=== PATIENT | female | born 1990 | race Caucasian/White ===

== ENCOUNTER 2019-01-14 19:19 | Inpatient (IN) ==
[2019-01-14] MEDS ORDERED: PANTOPRAZOLE 40 MG VIAL IV STA (19:58)
[2019-01-14] MEDS ORDERED: SODIUM CHLORIDE 0.9% 500 ML IV STA (19:58)
[2019-01-14] MEDS ORDERED: KETOROLAC 30 MG/1 ML VIAL IV STA (19:58)
[2019-01-14] MEDS ORDERED: ONDANSETRON 4 MG/2 ML VIAL IV STA (19:58)
[2019-01-14] MEDS ORDERED: HYDROmorphone 2 MG/1 ML VIAL IV STA (19:58)
[2019-01-14] MEDS ORDERED: KETOROLAC 60 MG/2 ML VIAL IM ONE (20:57)
[2019-01-14 21:03] LABS: Basophils % 0.5 % (0.0-0.8); Eosinophils # 0.1 10*3/uL (0.0-0.87); Eosinophils % 2.4 % (0.00-10.9); Hematocrit 36.4 VOL% (35.7-47.0); Hemoglobin 11.8 GM/DL (12.0-16.0); Immature Granulocytes % 0.2 %; Immature Granulocytes Absolute 0.01 #; Lymphocytes # 2.7 10*3/uL (1.4-4.0); Lymphocytes % 45.6 % (21.3-54.2); Mean Corpuscular HGB Conc 32.4 GM/DL (32-36); Mean Corpuscular Volume 87.7 FL (87-102); Mean Platelet Volume 9.6 FL (9.6-12.0); Monocytes % 8.6 % (1.7-12.7); Neutrophils % 42.7 % (38.7-73.9); Platelet Count 248 T/CUMM (130-400); Red Blood Count 4.15 MC/CUMM (3.8-5.5); Red Cell Distribution Width 13.1 % (9.3-17.3); White Blood Count 5.9 T/CUMM (4-12)
[2019-01-14 21:08] LABS: Apearance,Urine CLOUDY (Clear); Bilirubin,Urine Negative (Negative); Blood, Urine Negative (Negative); Glucose,Urine (UA) Negative (Negative); Ketones,Urine Negative (Negative); Mucus,Urine Occasional /LPF (Occasional); Nitrite,Urine Negative (Negative); Protein,Urine Negative; RBC,Urine 20 /HPF (0-4); Squamous Epithelial Cell,Urine Occasional /HPF (0-10); Urine Color Straw (Yellow); Urine Specific Gravity 1.012 (1.001-1.035); Urine Urobilinogen < 2.0 EU/DL (0.2-1.0)
[2019-01-14 21:22] LABS: Albumin 3.9 G/DL (3.4-5.0); Bilirubin,Total 0.4 MG/DL (0.2-1.0); Calcium 8.6 MG/DL (8.5-10.1); Total Protein 7.3 G/DL (6.4-8.3)
[2019-01-14] MEDS ORDERED: hydrALAZINE 20 MG/1 ML VIAL IV STA (22:10)
[2019-01-14] MEDS ORDERED: hydrALAZINE 20 MG/1 ML VIAL IV PRN (23:50)
[2019-01-14] MEDS ORDERED: DEXTROSE 50% 25 GM/50 ML VIAL IV PRN (23:50)
[2019-01-14] MEDS ORDERED: HYDROmorphone 2 MG/1 ML VIAL IV PRN (23:50)
[2019-01-14] MEDS ORDERED: GLUCAGON 1 MG VIAL IM PRN (23:50)
[2019-01-14] MEDS ORDERED: ACETAMINOPHEN 325 MG TABLET PO PRN (23:50)
[2019-01-14] MEDS ORDERED: ONDANSETRON 4 MG/2 ML VIAL IV PRN (23:50)
[2019-01-15] MEDS: SODIUM CHLORIDE 0.9% 1,000 ML IV SCH ×2 (02:19→11:55)
[2019-01-15] MEDS: PIPERACILLIN/TAZOBACTAM 3,375 MG in SODIUM CHLORIDE 0.9% 100 ML IV SCH ×2 (02:20→11:28)
[2019-01-15 04:57] LABS: Basophils % 0.6 % (0.0-0.8); Eosinophils # 0.2 10*3/uL (0.0-0.87); Eosinophils % 3.2 % (0.00-10.9); Hematocrit 35.9 VOL% (35.7-47.0); Hemoglobin 11.3 GM/DL (12.0-16.0); Immature Granulocytes % 0.3 %; Immature Granulocytes Absolute 0.02 #; Lymphocytes # 3.2 10*3/uL (1.4-4.0); Lymphocytes % 43.8 % (21.3-54.2); Mean Corpuscular HGB Conc 31.5 GM/DL (32-36); Mean Corpuscular Volume 88.4 FL (87-102); Monocytes % 11.1 % (1.7-12.7); Platelet Count 224 T/CUMM (130-400); Red Blood Count 4.06 MC/CUMM (3.8-5.5); Red Cell Distribution Width 12.8 % (9.3-17.3); White Blood Count 7.2 T/CUMM (4-12)
[2019-01-15 05:36] LABS: Albumin 3.6 G/DL (3.4-5.0); Bilirubin,Total 1.3 MG/DL (0.2-1.0); Calcium 8.7 MG/DL (8.5-10.1)
[2019-01-15] MEDS ORDERED: cefOXitin 2,000 MG in SYRINGE 1 EACH IV ONE (06:56)
[2019-01-15] MEDS ORDERED: LIDOCAINE 1%/EPI INJ 20 ML VIAL ONE (07:58)
[2019-01-15] MEDS ORDERED: BUPIVACAINE 0.25% /EPI 10 ML VIAL ONE (07:58)
[2019-01-15] MEDS ORDERED: TISSUE ADHESIVE 1 EACH APPLICATOR TOP ONE (07:58)
[2019-01-15] MEDS: INSULIN REGULAR 100 UNIT/ML SUBCUT SCH ×3 (08:19→16:37)
[2019-01-15] MEDS ORDERED: DEXTROSE 50% 25 GM/50 ML VIAL IV ONE (08:42)
[2019-01-15] MEDS ORDERED: PANTOPRAZOLE 40 MG VIAL IV SCH (09:00)
[2019-01-15] MEDS ORDERED: FAMOTIDINE 20 MG/2 ML VIAL IV SCH (09:00)
[2019-01-15] MEDS ORDERED: fentaNYL 100 MCG/2 ML VIAL ONE (09:56)
[2019-01-15] MEDS ORDERED: MIDAZOLAM 2 MG/2 ML VIAL ONE (09:56)
[2019-01-15] MEDS ORDERED: PROPOFOL 200 MG/20 ML VIAL IV ONE (09:56)
[2019-01-15] MEDS ORDERED: SEVOFLURANE 1 UNIT/15 MINUTE INH ONE (09:56)
[2019-01-15] MEDS ORDERED: ROCURONIUM 100 MG/10 ML VIAL IV ONE (09:57)
[2019-01-15] MEDS ORDERED: KETOROLAC 60 MG/2 ML VIAL IM ONE (09:57)
[2019-01-15] MEDS ORDERED: ONDANSETRON 4 MG/2 ML VIAL ONE (09:57)
[2019-01-15] MEDS ORDERED: NEOSTIGMINE 10 MG/10 ML VIAL ONE (09:57)
[2019-01-15] MEDS ORDERED: DEXAMETHASONE 4 MG/1 ML VIAL ONE (09:57)
[2019-01-15] MEDS ORDERED: GLYCOPYRROLATE 0.4 MG/2 ML VIAL ONE (09:57)
[2019-01-15] MEDS ORDERED: hydrALAZINE 20 MG/1 ML VIAL IV ONE (10:09)
[2019-01-15 16:02] VITALS: BP 141/94
== END 2019-01-15 18:42 | disposition home or self-care (01) | DRG 419 ==
LOC: N.ED 19:19 → N.3E 22:15
PROVIDERS: ADMIT Surgery; ATTEND Surgery
PROC: LAPCHOL (2019-01-15 08:44)

== ENCOUNTER 2022-03-05 05:37 | Inpatient (IN) ==
[2022-03-05] MEDS ORDERED: miSOPROStoL 200 MCG TABLET RECTAL PRN (05:51)
[2022-03-05] MEDS ORDERED: METHYLERGONOVINE 0.2 MG/1 ML AMP IM PRN (05:51)
[2022-03-05] MEDS ORDERED: CITRIC ACID/SODIUM CITRATE 30 ML UDCUP PO ONE (05:51)
[2022-03-05] MEDS ORDERED: CARBOPROST TROMETHAMINE 250 MCG/ML AMP IM PRN (05:51)
[2022-03-05] MEDS ORDERED: FAMOTIDINE 20 MG/2 ML VIAL IV ONE (05:51)
[2022-03-05] MEDS ORDERED: TRANEXAMIC ACID 1,000 MG in SODIUM CHLORIDE 0.9% 100 ML IV PRN (05:51)
[2022-03-05] MEDS ORDERED: OXYTOCIN/LR 20 UNIT/1,000 ML BAG IV ONE ×2 (05:51→14:21)
[2022-03-05 06:05] LABS: Basophils % 0.4 % (0.0-0.8); Eosinophils # 0.1 10*3/uL (0.0-0.87); Eosinophils % 0.9 % (0.00-10.9); Hematocrit 37.6 VOL% (35.7-47.0); Hemoglobin 12.5 GM/DL (12.0-16.0); Immature Granulocytes % 1.4 %; Immature Granulocytes Absolute 0.13 #; Lymphocytes # 2.3 10*3/uL (1.4-4.0); Lymphocytes % 23.5 % (21.3-54.2); Mean Corpuscular HGB Conc 33.2 GM/DL (32-36); Mean Corpuscular Volume 93.5 FL (87-102); Mean Platelet Volume 9.9 FL (9.6-12.0); Monocytes # 0.9 10*3/uL (0.11-0.8); Monocytes % 9.7 % (1.7-12.7); Neutrophils % 64.1 % (38.7-73.9); Platelet Count 198 T/CUMM (130-400); Red Blood Count 4.02 MC/CUMM (3.8-5.5); Red Cell Distribution Width 12.9 % (9.3-17.3); White Blood Count 9.6 T/CUMM (4-12)
[2022-03-05] MEDS: LACTATED RINGERS 1,000 ML IV SCH ×3 (06:11→18:43)
[2022-03-05] MEDS ORDERED: ceFAZolin 2,000 MG/50 ML DUPLEX IV ONE (07:29)
[2022-03-05] MEDS ORDERED: SODIUM CHLORIDE 0.9% 0 ML IV ONE (08:16)
[2022-03-05] MEDS ORDERED: buprenorphine HCL 0.3 MG/ML VIAL ONE (10:21)
[2022-03-05] MEDS ORDERED: LIDOCAINE 2% 5 ML VIAL ONE (10:38)
[2022-03-05] MEDS ORDERED: ePHEDrine 50 MG/ML VIAL ONE (10:56)
[2022-03-05] MEDS ORDERED: PHENYLEPHRINE 1 MG/10 ML SYRINGE IV ONE (10:56)
[2022-03-05] MEDS ORDERED: DEXAMETHASONE 4 MG/1 ML VIAL ONE (11:21)
[2022-03-05] MEDS ORDERED: ONDANSETRON 4 MG/2 ML VIAL ONE (11:21)
[2022-03-05] MEDS ORDERED: ACETAMINOPHEN INJ 1,000 MG/100 ML VIAL IV ONE (11:21)
[2022-03-05] MEDS ORDERED: KETOROLAC 30 MG/1 ML VIAL ONE (11:21)
[2022-03-05 11:41] LABS: Cord Arterial Blood HCO3 21.9 MMOL/L
[2022-03-05 11:44] LABS: Cord Venous Blood HCO3 23.5 MMOL/L; Cord Venous Blood PCO2 45.5 MMHG; Cord Venous Blood PO2 26.2
[2022-03-05 12:00] LABS: Amorphous Crystals,Urine Occasional /HPF (Few); Glucose,Urine (UA) Negative (Negative); Ketones,Urine 40 mg/dL (Negative); Mucus,Urine Occasional /LPF (Occasional); Nitrite,Urine Negative (Negative); Protein,Urine Negative (Negative); RBC,Urine 1 /HPF (0-4); Squamous Epithelial Cell,Urine Occasional /HPF (0-10); Urine Appearance Clear (Clear); Urine Color Light Yellow (Yellow); Urine Specific Gravity 1.015 (1.001-1.035); Urine pH 8.5 (4.5-8.0)
[2022-03-05 12:01] LABS: Bilirubin,Urine Negative (Negative); Blood, Urine Negative (Negative); Urine Urobilinogen 0.2 eU/dL (<2.0)
[2022-03-05] MEDS ORDERED: KETOROLAC 30 MG/1 ML VIAL IV SCH (13:00)
[2022-03-05] MEDS ORDERED: ACETAMINOPHEN 500 MG TABLET PO SCH (13:00)
[2022-03-05] MEDS: ACETAMINOPHEN 500 MG TABLET PO SCH ×2 (17:09→23:18)
[2022-03-05] MEDS: KETOROLAC 30 MG/1 ML VIAL IV SCH ×2 (17:10→23:19)
[2022-03-05] MEDS ORDERED: HYDROmorphone 1 MG/1 ML SYRINGE IV PRN (18:21)
[2022-03-06 04:54] LABS: Basophils % 0.2 % (0.0-0.8); Eosinophils % 0.1 % (0.00-10.9); Hemoglobin 9.6 GM/DL (12.0-16.0); Immature Granulocytes % 0.8 %; Immature Granulocytes Absolute 0.14 #; Lymphocytes # 2.6 10*3/uL (1.4-4.0); Lymphocytes % 14.6 % (21.3-54.2); Mean Corpuscular HGB Conc 33.1 GM/DL (32-36); Mean Corpuscular Volume 94.8 FL (87-102); Mean Platelet Volume 10.8 FL (9.6-12.0); Monocytes # 1.8 10*3/uL (0.11-0.8); Monocytes % 9.9 % (1.7-12.7); Neutrophils % 74.4 % (38.7-73.9); Platelet Count 173 T/CUMM (130-400); Red Blood Count 3.06 MC/CUMM (3.8-5.5); Red Cell Distribution Width 12.9 % (9.3-17.3); White Blood Count 17.8 T/CUMM (4-12)
[2022-03-06] MEDS: ACETAMINOPHEN 500 MG TABLET PO SCH (05:51)
[2022-03-06] MEDS: KETOROLAC 30 MG/1 ML VIAL IV SCH (05:52)
[2022-03-06] MEDS ORDERED: MEPERIDINE 50 MG/1 ML VIAL IV PRN (09:15)
[2022-03-06] MEDS ORDERED: ONDANSETRON 4 MG/2 ML VIAL IV PRN (09:16)
[2022-03-06] MEDS ORDERED: BENZOCAINE 20%/MENTHOL 0.5% SPRAY 56 GM CAN TOP PRN (14:03)
[2022-03-06] MEDS ORDERED: LANOLIN 50% CREAM 0.3 OZ TUBE TOP PRN (14:03)
[2022-03-06] MEDS ORDERED: BISACODYL 10 MG SUPP RECTAL PRN (14:03)
[2022-03-06] MEDS ORDERED: HYDROCORTISONE 2.5% RECTAL CREAM 30 GM TUBE TOP PRN (14:03)
[2022-03-06] MEDS ORDERED: WITCH HAZEL PADS 100/JAR TOP PRN (14:03)
[2022-03-06] MEDS ORDERED: ACETAMINOPHEN 325 MG TABLET PO PRN (14:03)
[2022-03-06] MEDS ORDERED: MEASLES/MUMPS/RUBELLA VACCINE 0.5 ML VIAL SUBCUT ONE (14:03)
[2022-03-06] MEDS ORDERED: IBUPROFEN 800 MG TABLET PO PRN (14:03)
[2022-03-06] MEDS ORDERED: oxyCODONE/ACETAMINOPHEN 5-325 MG TABLET PO PRN (14:03)
[2022-03-06] MEDS ORDERED: DIPH/TET/ACEL PERT BOOSTER VACCINE 0.5 ML VIAL IM ONE (14:03)
[2022-03-06] MEDS: oxyCODONE/ACETAMINOPHEN 5-325 MG TABLET PO PRN ×2 (15:51→21:30)
[2022-03-06] MEDS: DOCUSATE SODIUM 100 MG CAPSULE PO SCH (21:30)
[2022-03-07] MEDS: DOCUSATE SODIUM 100 MG CAPSULE PO SCH (08:07)
[2022-03-07] MEDS: oxyCODONE/ACETAMINOPHEN 5-325 MG TABLET PO PRN ×2 (08:08→15:09)
[2022-03-07 11:29] VITALS: BP 106/64
[2022-03-07] MEDS ORDERED: CYCLOBENZAPRINE 10 MG TABLET PO SCH (16:30)
== END 2022-03-07 15:45 | disposition home or self-care (01) | DRG 788 ==
LOC: N.LDOUT 05:37 → N.LD 05:39 → N.OB 15:12
PROVIDERS: ADMIT Specialist; ATTEND Specialist
PROC: LDCSECT (ICD-10-PCS; 2022-03-05 08:00)

== ENCOUNTER 2022-03-14 01:01 | Observation (INO) ==
[2022-03-14] MEDS ORDERED: SODIUM CHLORIDE 0.9% 500 ML IV STA (01:40)
[2022-03-14] MEDS ORDERED: ONDANSETRON 4 MG/2 ML VIAL IV STA (01:40)
[2022-03-14 02:30] LABS: Basophils # 0.1 10*3/uL (0.0-0.2); Basophils % 0.5 % (0.0-0.8); Eosinophils # 0.3 10*3/uL (0.0-0.87); Eosinophils % 3.7 % (0.00-10.9); Hematocrit 33.2 VOL% (35.7-47.0); Hemoglobin 10.9 GM/DL (12.0-16.0); Immature Granulocytes % 0.5 %; Immature Granulocytes Absolute 0.05 #; Lymphocytes # 2.2 10*3/uL (1.4-4.0); Lymphocytes % 23.3 % (21.3-54.2); Mean Corpuscular HGB Conc 32.8 GM/DL (32-36); Mean Corpuscular Volume 94.3 FL (87-102); Mean Platelet Volume 9.3 FL (9.6-12.0); Monocytes # 0.9 10*3/uL (0.11-0.8); Monocytes % 9.7 % (1.7-12.7); Neutrophils % 62.3 % (38.7-73.9); Platelet Count 280 T/CUMM (130-400); Red Blood Count 3.52 MC/CUMM (3.8-5.5); Red Cell Distribution Width 12.5 % (9.3-17.3); White Blood Count 9.2 T/CUMM (4-12)
[2022-03-14 02:44] LABS: PT Patient Result 21.5 SECS (10.1-12.1)
[2022-03-14 02:47] LABS: Albumin 2.8 G/DL (3.4-5.0); Bilirubin,Total 0.4 MG/DL (0.20-1.00); Calcium 8.4 MG/DL (8.5-10.1); Osmolality,Calculated 279.1 MOS/KG (273-304); Total Protein 6.5 G/DL (6.4-8.2)
[2022-03-14] MEDS ORDERED: CARBOPROST TROMETHAMINE 250 MCG/ML AMP IM ONE ×2 (02:52→03:00)
[2022-03-14] MEDS ORDERED: HYDROmorphone 1 MG/1 ML SYRINGE IV STA (03:33)
[2022-03-14 03:45] LABS: Bilirubin,Urine Negative (Negative); Blood, Urine Trace mg/dL (Negative); Glucose,Urine (UA) Negative (Negative); Ketones,Urine Negative (Negative); Nitrite,Urine Negative (Negative); Protein,Urine Negative (Negative); Urine Appearance Clear (Clear); Urine Color Yellow (Yellow); Urine Specific Gravity 1.015 (1.001-1.035); Urine Urobilinogen 0.2 eU/dL (<2.0); Urine pH 5.5 (4.5-8.0)
[2022-03-14 03:46] LABS: Mucus,Urine Trace /LPF (Occasional); RBC,Urine 0-3 /HPF (0-4); Squamous Epithelial Cell,Urine Few /HPF (0-10)
[2022-03-14] MEDS ORDERED: LACTATED RINGERS 1,000 ML IV SCH (04:04)
[2022-03-14] MEDS ORDERED: OXYTOCIN/LR 20 UNIT/1,000 ML BAG IV ONE ×2 (04:04→12:28)
[2022-03-14] MEDS ORDERED: SODIUM CHLORIDE 0.9% 1,000 ML IV SCH (04:04)
[2022-03-14] MEDS ORDERED: BISACODYL 10 MG SUPP RECTAL PRN (04:04)
[2022-03-14] MEDS ORDERED: ONDANSETRON 4 MG/2 ML VIAL IV PRN (04:04)
[2022-03-14] MEDS ORDERED: oxyCODONE/ACETAMINOPHEN 5-325 MG TABLET PO PRN (04:04)
[2022-03-14] MEDS ORDERED: HYDROmorphone 1 MG/1 ML SYRINGE IV PRN (04:04)
[2022-03-14] MEDS ORDERED: MAGNESIUM HYDROXIDE SUSP 30 ML UDCUP PO PRN (04:04)
[2022-03-14] MEDS ORDERED: ACETAMINOPHEN 325 MG TABLET PO PRN (04:04)
[2022-03-14] MEDS ORDERED: FOLIC ACID 0.8 MG PO SCH (09:00)
[2022-03-14] MEDS ORDERED: DOCUSATE SODIUM 100 MG CAPSULE PO SCH (09:00)
[2022-03-14] MEDS ORDERED: METHYLERGONOVINE 0.2 MG TABLET PO SCH (09:00)
[2022-03-14] MEDS ORDERED: amLODIPine 10 MG TABLET PO SCH (09:00)
[2022-03-14] MEDS ORDERED: MULTIVITAMIN (PRENATAL) TABLET PO SCH (09:00)
[2022-03-14] MEDS ORDERED: ACETAMINOPHEN 500 MG TABLET PO PRN (09:32)
[2022-03-14 12:04] VITALS: BP 128/73
== END 2022-03-14 14:05 | disposition home or self-care (01) ==
LOC: N.OB 01:01 → N.ED 01:01 → N.OB 04:19
PROVIDERS: ADMIT Specialist; ATTEND Specialist